=== PATIENT | male | born 1985 | race Caucasian/White ===

== ENCOUNTER 2021-01-31 08:24 | Outpatient (CLI) | payer BC ==
[2021-01-31 18:02] LABS: SARS-CoV-2 PCR by NAA Not Detected (NotDetected)
== END 2021-01-31 08:25 | disposition home or self-care (01) ==
LOC: LABBT 08:24
PROVIDERS: ATTEND Family Medicine
DX: Z01.812 Encounter for preprocedural laboratory examination (principal); Z20.822 Contact with and (suspected) exposure to COVID-19
CPT/HCPCS: U0003; U0005

== ENCOUNTER 2021-02-01 10:01 | Outpatient (CLI) | payer BC, MEDICAID | END 2021-02-01 10:02 | disposition home or self-care (01) | PROVIDERS: ATTEND Physical Medicine & Rehabilitation | DX: I69.191 Dysphagia following nontraumatic intracerebral hemorrhage (principal); R13.12 Dysphagia, oropharyngeal phase; R63.30 Feeding difficulties, unspecified | CPT/HCPCS: 74230 ==